=== PATIENT | male | born 1955 | race Caucasian/White ===

== ENCOUNTER 2017-11-28 10:19 | Emergency (ER) | payer OTHER, BC ==
[~2017-11-28] VITALS: Ht 175.3 cm; Wt 102.5 kg
[~2017-11-28 10:19] MED LIST: LISINOPRIL20 MG PO; VITAMIN C500 M1 PO; ZETIA10 MG PO
[2017-11-28] MEDS ORDERED: AMLODIPINE BESYL5 MG PO (10:36)
[2017-11-28] MEDS ORDERED: CANDESARTAN CIL16 MG PO (10:36)
[2017-11-28] MEDS ORDERED: DAILY VITE1 EACH PO (10:37)
[2017-11-28] MEDS ORDERED: ONDANSETRON ODT8 MG PO (12:00)
== END 2017-11-28 12:06 | disposition home or self-care (01) ==
LOC: ED 10:19
DX: S01.312A Laceration without foreign body of left ear, initial encounter (principal); I10 Essential (primary) hypertension; Z87.891 Personal history of nicotine dependence; Z88.0 Allergy status to penicillin; Z88.6 Allergy status to analgesic agent; Z79.899 Other long term (current) drug therapy; W22.8XXA Striking against or struck by other objects, initial encounter; Y92.89 Other specified places as the place of occurrence of the external cause; Y99.0 Civilian activity done for income or pay
CPT/HCPCS: 99283

== ENCOUNTER 2018-07-25 06:15 | Emergency (ER) | payer BC ==
[~2018-07-25] VITALS: Ht 175.3 cm; Wt 106.2 kg
[~2018-07-25 06:15] MED LIST changes: +AMLODIPINE BESY10 MG PO; +AMLODIPINE BESYL5 MG PO; +BENZONATATE100 MG PO; +CANDESARTAN CIL16 MG PO; +CIPROFLOXACIN500 MG PO; +CLOBETASOL PROP15 GM TOP; +DAILY VITE1 EACH PO; +DOXYCYCLINE MO100 MG PO; +ONDANSETRON ODT8 MG PO; +PROAIR HFA8.5 GM INH; +SILDENAFIL CIT100 MG PO
[2018-07-25] MEDS ORDERED: AMLODIPINE BESY10 MG PO (06:30)
== END 2018-07-25 08:10 | disposition home or self-care (01) ==
LOC: ED 06:15
DX: S02.2XXA Fracture of nasal bones, initial encounter for closed fracture (principal); W01.198A Fall on same level from slipping, tripping and stumbling with subsequent striking against other object, initial encounter; I10 Essential (primary) hypertension; E78.00 Pure hypercholesterolemia, unspecified; Z88.0 Allergy status to penicillin; Z88.8 Allergy status to other drugs, medicaments and biological substances; Z79.899 Other long term (current) drug therapy
CPT/HCPCS: 70486; 99283-25

== ENCOUNTER 2021-06-08 06:31 | Day surgery (SDC) | payer MEDICARE ==
--- NOTE | 2021-05-25 08:29 | NUR ---
PT JUST ARRIVING, ANDREY RAGLAND IN. GAVE ENCOURAGEMENT. IS HERE FOR SUPPORT. PT IS ALERT AND ORIENTED AND THANKED ME FOR CHECKING ON HIM. GAVE BLESSING, WILL FOLLOW NEEDED
[~2021-06-08] VITALS: Ht 177.8 cm; Wt 108.0 kg
[~2021-06-08 06:31] MED LIST changes: +CANDESARTAN CIL32 MG PO; +DIFLUCAN200 MG PO; +KLOR-CON M2020 MEQ PO; +LASIX20 MG PO; +OXYCODONE HCL10 MG PO; +PEPTO-BISMOL262 M1 PO; +SILDENAFIL20 MG PO
[2021-06-08] MEDS ORDERED: PRILOSEC OTC20 MG PO (06:55)
--- NOTE | 2021-06-08 08:29 | NUR ---
06/08/21 0829 Ignacia Suh 0809 PT ARRIVED IN PACU SLEEPY WITH NO C/O'S. ABD SOFT AND PASSING FLATUS. 0820 SITTING UP IN BED SIPPING ON WATER. 0825 DC INSTRUCTIONS GIVEN. ALL QUESTIONS ANSWERED.
--- NOTE | 2021-06-08 10:07 | NUR ---
PT ALERT, ORIENTED AND SUPPORTED BY IS VASU. PT ADMITTED THAT HE IS HERE TODAY BECAUSE HE DIDN'T FOLLOWING SCOPE PREP A FEW SEEKS AGO. SAID HE LEARNED HIS LESSON, BUT ADMITTED HE WAS ANXIOUS. PT HAS PTSD AND BEING IN A HOSPITAL INCREASES HIS ANXIETY. GAVE ENCOURAGEMENT AND COMFORT, PT ASKED FOR PRAYER. WILL FOLLOW NEEDED
--- NOTE | 2021-06-09 12:31 | OR ---
[facility] [address], [place] [address] Signed DATE OF OPERATION: 06/08/2021 SURGEON: Eve Kinsey MD PREOPERATIVE DIAGNOSES: 1. Father with colon cancer at age 89. 2. Hyperplastic polyps 2010. 3. Internal hemorrhoids. POSTOPERATIVE DIAGNOSES: 1. Moderate internal hemorrhoids. 2. 4 mm polyps at 90, 85 (x2), 80, 68, 20 (sigmoid) and 15 cm. PROCEDURE: Colonoscopy with hot biopsy. ESTIMATED BLOOD LOSS: None. INDICATIONS: Ashley is a 66-year-old gentleman, who presents for followup colonoscopy. His father was diagnosed and of colon cancer at age 89. Ashley had a colonoscopy in 2010 with myself and had hyperplastic polyps removed. We know he has moderate internal hemorrhoids. We repeated his colonoscopy in 2016 and he had moderate internal hemorrhoids. Currently, he has no lower GI complaints. In the office, I gave him a pamphlet on colonoscopy and we had reviewed the nature of the test. He understands there is risk including, but not limited to gas bloating, crampy abdominal pain, bleeding, perforation requiring surgery, and missed diagnosis. We also reviewed the need for IV conscious sedation. Ashley had expressed understanding and wished to proceed. PROCEDURE NOTE: Ashley was taken into our endoscopy suite and placed in the left lateral decubitus position. He was given IV sedation with 10 mg of Versed and 200 mcg of fentanyl. He was a little awake and moaning during the test. Even then he is very easy to pass the scope. Consequently, he is very close to needing monitored anesthesia care with propofol. A digital rectal exam had been done and he has good sphincter tone. His prostate gland is moderately indurated and enlarged. The adult colonoscope had been introduced and advanced under direct visualization of camera. He took extra sedation and abdominal compression in order to advance the scope. I think with better sedation though it would have passed much easier. His prep was quite good. We could easily see Electronically Signed By: EVE KINSEY MD 06/08/21 0908 Electronically Signed By: EVE KINSEY MD 06/09/21 1241 PATIENT NAME: ASHLEY AVITIA OPERATIVE REPORT DATE OF : 57 REPORT #: [id number] PHYSICIAN: EVE KINSEY MD PCP: RUSTAM GAMEZ MD REPORT IS CONFIDENTIAL AND NOT TO BE RELEASED WITHOUT AUTHORIZATION [facility] [address], [place] [address] Signed the appendiceal orifice and ileocecal valve. The scope was then slowly withdrawn. The above-mentioned polyps were easily removed with the help of hot biopsy forceps. The polyps all measured about 4 mm in size. There was no diverticulosis. Upon retroflexion of scope, he once again has moderate-sized internal hemorrhoids. After this, the gas was suctioned out and the colonoscope removed. Ashley tolerated the procedure quite well. RECOMMENDATIONS: I will see Ashley back in my office in 7 to 14 days to review his results. If he has recall of the test, he might consider monitor anesthesia care in the future. Eve Kinsey MD ALB/MODL /[id number] cc: MD Rustam Clark MD Copies: EVE KINSEY MD, MALCOLM MD ~ Electronically Signed By: EVE KINSEY MD 06/08/21 0908 Electronically Signed By: EVE KINSEY MD 06/09/21 1241 PATIENT NAME: ASHLEY AVITIA OPERATIVE REPORT DATE OF : 57 REPORT #: [id number] PHYSICIAN: EVE KINSEY MD PCP: RUSTAM GAMEZ MD REPORT IS CONFIDENTIAL AND NOT TO BE RELEASED WITHOUT AUTHORIZATION
--- NOTE | 2021-06-09 14:31 | PATH ---
[facility] [address], [place] [address] Signed SPECIMEN(S): A COLON POLYP AT 90 CM SPECIMEN(S): B COLON POLYP AT 85 CM X 2 SPECIMEN(S): C COLON POLYP AT 80 CM SPECIMEN(S): D COLON POLYP AT 68 CM SPECIMEN(S): E COLON POLYP AT 20 CM SPECIMEN(S): F RECTAL POLYP AT 15 CM SPECIMEN SOURCE: A. COLON POLYP AT 90 CM B. COLON POLYP AT 85 CM X 2 C. COLON POLYP AT 80 CM D. COLON POLYP AT 68 CM E. COLON POLYP AT 20 CM F. RECTAL POLYP AT 15 CM CLINICAL HISTORY: Colonoscopy. Family history of colon CA, personal history of colon polyps/surveillance. Post: Colon/rectal polyps, internal hemorrhoids. MICROSCOPIC DESCRIPTION: Histologic sections of all submitted blocks are examined by light microscopy. These findings, together with the gross examination, support the pathologic diagnosis. FINAL PATHOLOGIC DIAGNOSIS: A. Colon, 90 cm, polypectomy: - Colonic mucosa with no significant pathologic changes. B. Colon, 85 cm, polypectomies: - Hyperplastic polyp. C. Colon, 80 cm, polypectomy: - Tubular adenoma. D. Colon, 68 cm, polypectomy: - Tubular adenoma. E. Colon, 20 cm, polypectomy: - Colonic mucosa with a lymphoid aggregate. F. Rectum, 15 cm, polypectomy: - Colonic mucosa with no significant pathologic changes. BRP:cml:[id number] GROSS DESCRIPTION: Six specimens are received in six containers, labeled "." A. The specimen, labeled "MD, colon polyp at 90 cm," is received in formalin PATIENT NAME: ASHLEY AVITIA PATHOLOGY DATE OF : 57 REPORT #: [id number] PHYSICIAN: MISSY STAHL PCP: JULIÁN GAMEZ MD REPORT IS CONFIDENTIAL AND NOT TO BE RELEASED WITHOUT AUTHORIZATION [facility] [address], [place] [address] Signed and consists of two martinez soft tissue fragments that measure 0.2 cm in greatest dimension. The specimen is entirely submitted in cassette (A1). B. The specimen, labeled "MD, colon polyp at 85 cm," is received in formalin and consists of two martinez soft tissue fragments that measure 0.2 cm in greatest dimension. The specimen is entirely submitted in cassette (B1). C. The specimen, labeled "MD, colon polyp at 80 cm," is received in formalin and consists of one martinez soft tissue fragment that measures 0.1 cm in greatest dimension. The specimen is entirely submitted in cassette (C1). D. The specimen, labeled "MD, colon polyp at 68 cm," is received in formalin and consists of one martinez soft tissue fragment that measures 0.1 cm in greatest dimension. The specimen is entirely submitted in cassette (D1). E. The specimen, labeled "MD, colon polyp at 20 cm," is received in formalin and consists of one martinez soft tissue fragment that measures 0.2 cm in greatest dimension. The specimen is entirely submitted in cassette (E1). F. The specimen, labeled "MD, colon polyp at 15 cm," is received in formalin and consists of one martinez soft tissue fragment that measures 0.1 cm in greatest dimension. The specimen is entirely submitted in cassette (F1). JS (under the direct supervision of a pathologist) The Gross Description was prepared using a voice recognition system. The report was reviewed for accuracy; however, sound-alike word errors, addition and/or deletions may occur. If there is any question about this report, please contact Client Services. PERFORMING LABORATORY: The technical component was performed by [facility] [address] (Evaluation Advisor: Amanda Rivera MD; CLIA# [id number]). Professional interpretation was performed by [facility], [address], [place] [address] (CLIA# [id number]). Diagnostician: Jordon Oden MD Pathologist Electronically Signed 06/09/2021 PATIENT NAME: ASHLEY AVITIA PATHOLOGY DATE OF : 57 REPORT #: [id number] PHYSICIAN: MISSY PATHOLOGY PCP: JULIÁN GAMEZ MD REPORT IS CONFIDENTIAL AND NOT TO BE RELEASED WITHOUT AUTHORIZATION [facility] [address], [place] [address] Signed Copies: ~ PATIENT NAME: ASHLEY AVITIA PATHOLOGY DATE OF : 57 REPORT #: [id number] PHYSICIAN: MISSY STAHL PCP: JULIÁN GAMEZ MD REPORT IS CONFIDENTIAL AND NOT TO BE RELEASED WITHOUT AUTHORIZATION
== END 2021-06-08 08:40 | disposition home or self-care (01) ==
LOC: OPS 06:31 → DS 06:31 → OPS 06:45
PROVIDERS: ATTEND Colon & Rectal Surgery
PROC: 0DBN8ZX Excision of Sigmoid Colon, Via Natural or Artificial Opening Endoscopic, Diagnostic (ICD-10-PCS; principal; 2021-06-08 06:45)
DX: D12.6 Benign neoplasm of colon, unspecified (principal); K64.8 Other hemorrhoids; K62.1 Rectal polyp; I10 Essential (primary) hypertension; N40.0 Benign prostatic hyperplasia without lower urinary tract symptoms; Z88.8 Allergy status to other drugs, medicaments and biological substances; Z87.891 Personal history of nicotine dependence; Z88.0 Allergy status to penicillin; Z80.0 Family history of malignant neoplasm of digestive organs; Z20.822 Contact with and (suspected) exposure to COVID-19
CPT/HCPCS: 99153; G0500; J0690; J2250; J3010; J7121

== ENCOUNTER 2024-05-01 08:09 | Emergency (ER) | payer OTHER, MEDICARE ==
[~2024-05-01] VITALS: Ht 177.8 cm; Wt 99.6 kg
[~2024-05-01 08:09] MED LIST changes: +PRILOSEC OTC20 MG PO
[2024-05-01] MEDS ORDERED: ACETAMINOPHEN 500 MG TAB PO ONE (08:30)
[2024-05-01] MEDS ORDERED: OXYCODONE/APAP 5/325 TAB PO ONE (09:00)
[2024-05-01] MEDS ORDERED: KETOROLAC TROMETHAMINE 60 MG/2 ML VIAL IM ONE (09:00)
[2024-05-01] MEDS ORDERED: predniSONE 20 MG TAB PO ONE (09:15)
[2024-05-01] MEDS ORDERED: PERCOCET 5-3251 EACH PO (10:11)
[2024-05-01] MEDS ORDERED: PREDNISONE20 MG PO (10:11)
[2024-05-01] MEDS ORDERED: KETOROLAC TROME10 MG PO (10:11)
[2024-05-01 10:22] VITALS: BP 134/80
== END 2024-05-01 10:24 | disposition home or self-care (01) ==
LOC: ED 08:09
DX: S90.31XA Contusion of right foot, initial encounter (principal); M10.9 Gout, unspecified; I10 Essential (primary) hypertension; E78.00 Pure hypercholesterolemia, unspecified; Z88.0 Allergy status to penicillin; Z88.6 Allergy status to analgesic agent; Z79.899 Other long term (current) drug therapy; W22.8XXA Striking against or struck by other objects, initial encounter
CPT/HCPCS: 36415; 73630; 84550; 99283; A9270; J7512